=== PATIENT | male | born 1960 | race Caucasian/White ===

== ENCOUNTER 2018-12-12 11:04 | Emergency (ER) | payer OTHER, SELFPAY ==
[2018-12-12 11:04] VITALS: BP 178/112; PULSE 62; RESP 18; TEMP 37.1; O2SAT 98; BMI 25.8
--- NOTE | 2018-12-12 11:41 | ED.VIS.GEN ---
History of Present Illness Chief Complaint: Abn Labs Informant: Patient Onset: Month(s) Context: Gradual Onset Timing: Continuous Quality: Incomplete emptying when patient urinates and elevated creatinine Location: Current Severity: Moderate Maximum Severity: Moderate Worsened by: Suspect enlarged prostate Relieved by: Nothing Associated Symptoms: Sense of fullness in lower abdomen and incomplete voiding Narrative: Patient is a 58-year-old male who presents because of elevated creatinine and concern for urinary retention. Patient states he has had problems voiding for several months He saw his primary care physician in August. Creatinine was elevated. Thought was that the elevated creatinine was secondary to antihypertensive meds. Medication was changed. Renal failure worsened. He was seen today by middle school football coach who is concern for urinary retention. Patient denies dysuria or hematuria. Patient denies testicular pain. Patient denies nausea, vomiting diarrhea. Patient denies constipation. Prior similar symptoms: Yes Recent Illness/Hospitalization: Yes - Past Medical History (1) History of hypertension Status: Acute Past Medical History - Allergies and Home Meds Allergies/Adverse Reactions: Allergies No Known Allergies Allergy (Verified 12/12/18 11:06) Prior records reviewed: Yes Surgical History: no surgical history Smoking Status: Never smoker Alcohol: Rare Drugs: None Review of Systems General: Denies: Chills, Fever, Sweats Eyes: Denies: Visual changes - bilaterally, Blurred Vision - bilaterally, Diplopia ENT: Denies: Rhinorrhea, Sore throat Cardiovascular: Denies: Chest pain, Palpitations Respiratory: Denies: Dyspnea, Cough, Dyspnea on exertion Gastrointestinal: Denies: Abdominal pain, Nausea, Vomiting, Diarrhea, Melena, Hematochezia Genitourinary: Reports: Frequency - Small amounts and incomplete voiding Musculoskeletal: Denies: Back pain, Extremity Pain Skin: Denies: Rash, Wounds Neurological: Denies: Headache, Weakness, Numbness Hematologic: Denies: Easy bruising, Easy bleeding Physical Exam Vital Signs/Narrative: Vital Signs Temp Pulse Resp BP Pulse Ox 12/12/18 11:04 98.7 F 62 18 178/112 H 98 Inital Vital Signs reviewed: Yes General: Well nourished, Well developed, No Acute Distress Head: Normocephalic, Atraumatic Eyes: Perrl, EOMI ENT: Moist mucous membranes, No rhinorrhea Neck: Supple, Nontender Cardiovascular: Regular rate, Regular rhythm, No murmurs Respiratory: No distress, CTA bilaterally, Chest nontender Abdomen: Soft, Nontender, Nondistended, Normal bowel sounds, Mass - Bladder is distended to percussion. Back: Nontender, Normal Inspection Extremities: Nontender, No edema Skin: Normal color, No rash Neurological: Alert, Oriented x3, Cranial nerves II-XII grossly intact, Normal Strength, Normal Sensation Psychological: Normal affect, Normal Mood Diagnostic/Tx/Re-eval Laboratory Results 12/12/18 11:45 Sodium 141 Potassium 4.2 Chloride 110 H Carbon Dioxide 27.0 Anion Gap 4 L BUN 59 H Creatinine 4.37 H Estim Creat Clear Calc 16.81 Est GFR (MDRD) Af Amer 18 L Est GFR (MDRD) Non-Af 15 L BUN/Creatinine Ratio 13.5 Glucose 86 Calcium 9.0 - Medical Decision Making Patient Relations Representative requested repeat basic metabolic panel. Since patient has urinary retention will Place Wang and refer to urologist if placement of Wang confirms urinary retention. Wang was placed and drained greater than 3 L of clear straw-colored urine. Creatinine was 4.37. Case was discussed with middle school football coach. Referral was made to Dr. Barlow. Will prescribe Flomax as well. ED Disposition - Plan for ED Patient: Disposition: Home or Assisted Living Diagnosis: Acute kidney injury (nontraumatic), BPH (benign prostatic hyperplasia), Urinary retention Instructions: ED Retention Urinary Male, ED Catheter Care Wang, Discharge Instructions for Acute Kidney Injury Prescriptions: Tamsulosin HCl [Flomax] 0.4 mg PO DAILY #30 cap Referrals: Wolf Lan MD [Primary Care Provider] - Fede Delgado MD [STAFF PHYSICIAN] - 3-5 Days
[2018-12-12 12:03] LABS: Anion Gap 4 (5-15); BUN 59 mg/dL (7-18); BUN/Creat Ratio 13.5 RATIO (10-20); Chloride 110 mmol/L (98-107); Creatinine, Serum 4.37 mg/dL (0.70-1.30); EST Glomerular Filtration Rate 15 mL/min (>60); Est Glom Filt Rate - Afr Amer 18 mL/min (>60); Estimated Creatinine Clearance 16.81 ml/min; Glucose 86 mg/dL (74-106); Potassium 4.2 mmol/L (3.5-5.1); Sodium Level 141 mmol/L (136-145)
[2018-12-12 14:01] VITALS: BP 164/99; PULSE 56; O2SAT 98
[2018-12-12 14:42] VITALS: BP 144/81; PULSE 54; RESP 14; O2SAT 99
== END 2018-12-12 14:42 | disposition home or self-care (01) ==
PROVIDERS: Emergency Provider Emergency Medicine; Family Provider Family Medicine; PCP Family Medicine
DX: N17.9 Acute kidney failure, unspecified (principal); N40.1 Benign prostatic hyperplasia with lower urinary tract symptoms; R33.8 Other retention of urine; I10 Essential (primary) hypertension; Z79.899 Other long term (current) drug therapy
CPT/HCPCS: 51702; 80048; 99284

== ENCOUNTER 2018-12-12 21:20 | Emergency (ER) | payer OTHER, SELFPAY ==
[2018-12-12 11:04] VITALS: BMI 25.8
[2018-12-12 21:20] VITALS: BP 127/84; PULSE 70; RESP 20; TEMP 36.8; O2SAT 97; BMI 25.8
--- NOTE | 2018-12-12 22:41 | ED.VISSUMM ---
- ER Visit Summary Date of Service: 12/12/18 Chief Complaint: Hematuria History of Present Illness: The patient is a 58 M presents to the emergency department hematuria. The patient was actually seen here earlier today. He was found to have acute urinary retention with an elevated creatinine. He was actually sent in by his blood tester fowl. Wang was placed. He had about 3 L of clear urine out. He states he is feeling much improved. He went home and shortly after being home, he began to have some blood in his bag. He also noticed a small clots. He denies any pain. He is not on anticoagulants. He denies any fevers or chills. He states he was just concerned with the bleeding and wanted to be reevaluated. Physical Examination: Vital signs reviewed General: Well-nourished, well-developed Head: Normocephalic, atraumatic Eyes: Pupils equal and reactive, extraocular muscles intact Neck, supple, no lymphadenopathy Heart: Regular rate and rhythm Respiratory: No distress, clear bilaterally Abdomen: Soft, nontender, nondistended, no peritoneal signs Back: Nontender Extremities: Nontender, no edema, no cords Skin: Normal color no rash Neuro: Alert and oriented, no focal or lateralizing deficits Test Results: [] Emergency Department Course and Treatment: The patient's Wang was irrigated and he did have clearing of urine. However, I was concerned as this was a small Wang that he might have recurrent hematuria. This was replaced with an 18 Kiswahili. Patient continues to have clear urine out. At this time, he is resting comfortably. He is rather asymptomatic. I do feel that he is safe for discharge with follow-up with urology as initially planned. The patient is comfortable with this plan of care. Treatment Plan: [] Disposition: Discharge Impression: 1. Hematuria status post Wang cath placement This note was generated with [employer] dictation software. It may contain incorrect words, spelling, and punctuation that were not noted in review of the chart prior to signing ED Disposition - Plan for ED Patient: Instructions: Discharge Instructions: Caring for Your Indwelling Urinary Catheter Referrals: Fede Delgado MD [STAFF PHYSICIAN] -
[2018-12-12] MEDS: Ondansetron ODT 4 MG Tablet PO (23:30)
[2018-12-12] MEDS: Lidocaine Jelly 2% 20 ML Syringe (URO-JET) 20 APPLIC TOPICAL (23:49)
[2018-12-13 01:07] VITALS: BP 121/79; PULSE 61; RESP 16; O2SAT 97
[2018-12-13 01:08] VITALS: BP 121/79; PULSE 65; RESP 16; O2SAT 96
== END 2018-12-13 01:22 | disposition home or self-care (01) ==
PROVIDERS: Emergency Provider Emergency Medicine; Family Provider Family Medicine; PCP Family Medicine
DX: T83.098A Other mechanical complication of other urinary catheter, initial encounter (principal); R31.9 Hematuria, unspecified
CPT/HCPCS: 99282

== ENCOUNTER → 2019-01-03 13:31 | Outpatient (CLI) | payer OTHER, SELFPAY ==
[2018-12-12 21:20] VITALS: BMI 25.8
[2019-01-03 15:23] LABS: BUN 39 mg/dL (7-18); Creatinine, Serum 2.86 mg/dL (0.70-1.30); Glucose 80 mg/dL (74-106)
[2019-01-03 15:24] LABS: Anion Gap 9 (5-15); BUN/Creat Ratio 13.6 RATIO (10-20); Calcium,Total 8.8 mg/dL (8.5-10.1); Chloride 104 mmol/L (98-107); EST Glomerular Filtration Rate 24 mL/min (>60); Est Glom Filt Rate - Afr Amer 29 mL/min (>60); PSA,Total- Diagnostic 7.83 ng/mL (0.0-4.0); Potassium 3.4 mmol/L (3.5-5.1); Sodium Level 140 mmol/L (136-145)
== END ==
PROVIDERS: Family Provider Family Medicine; PCP Family Medicine; Referring Provider Internal Medicine Nephrology; Visit Provider Internal Medicine Nephrology
DX: N40.0 Benign prostatic hyperplasia without lower urinary tract symptoms (principal); N31.2 Flaccid neuropathic bladder, not elsewhere classified; N17.9 Acute kidney failure, unspecified
CPT/HCPCS: 36415; 80048; 84153

== ENCOUNTER → 2019-02-12 09:12 | Outpatient (CLI) | payer OTHER, SELFPAY ==
--- NOTE | 2019-02-12 09:14 | US_ITS ---
STUDY: RENAL ULTRASOUND - COMPLETE REASON FOR EXAM: Male, 58 years old. Chronic kidney disease. TECHNIQUE: Ultrasound evaluation of the kidneys was performed with real-time and static piña-scale imaging. COMPARISON: None. FINDINGS: RIGHT KIDNEY: Normal location of the right kidney, which is normal in size. The right kidney measures 10.4 cm. There is a normal cortex of the right kidney. The renal cortex measures 1.9 cm. There is a 3 x 2.5 x 2.2 cm simple cyst in the mid kidney. There are no right renal calculi. There is mild hydronephrosis of the right kidney. DISTAL RIGHT URETER: There is non-visualization of the distal right ureter. There is no demonstrated right ureterovesical junction calculus. There is a visualized right ureteral jet. LEFT KIDNEY: Normal location of the left kidney, which is normal in size. The left kidney measures 10.5 cm. There is a normal cortex of the left kidney. The renal cortex measures 1.9 cm. There is no left renal mass or cyst. There are no left renal calculi. There is moderate hydronephrosis of the left kidney. DISTAL LEFT URETER: There is non-visualization of the distal left ureter. There is no demonstrated left ureterovesical junction calculus. There is a visualized left ureteral jet. BLADDER: The distended urinary bladder has a volume of 357 ml. There is trabeculation of the floor of the urinary bladder with normal wall thickness. There is no demonstrated mass within the urinary bladder. Minimal intraluminal debris cannot BE completely ruled out. US/Kidney and Bladder IMPRESSION: 1. Bilateral hydronephrosis, left greater than right. 2. Right renal cyst. 3. Trabeculated bladder wall. The possibility of minimal intraluminal debris cannot be ruled out. Electronically Signed: Kiirll Latham DO at 16:56 EDT Tel [phone], Service support ,
== END ==
PROVIDERS: Family Provider Family Medicine; PCP Family Medicine; Referring Provider Internal Medicine Nephrology; Visit Provider Internal Medicine Nephrology
DX: N18.4 Chronic kidney disease, stage 4 (severe) (principal)
CPT/HCPCS: 76770

== ENCOUNTER → 2019-02-21 14:01 | Outpatient (CLI) | payer OTHER, SELFPAY ==
[2019-02-21 15:06] LABS: Hematocrit 41.6 % (40-54); Hemoglobin 13.7 g/dL (13.0-16.5); Mean Corp Hgb Conc 32.9 g/dL (32-36); Mean Platelet Vol. 9.7 fl (6.2-12.0); Platelet Count 294 K/mm3 (150-450); RBC Distribution Width CV 13.2 % (11.6-14.6); RBC Distribution Width SD 43.8 fl (35.1-43.9); Red Blood Count 4.57 M/mm3 (4.6-6.2); White Blood Count 6.3 K/mm3 (4.4-11.0)
[2019-02-21 15:34] LABS: Anion Gap 7 (5-15); BUN 38 mg/dL (7-18); BUN/Creat Ratio 15.1 RATIO (10-20); Chloride 104 mmol/L (98-107); Creatinine, Serum 2.52 mg/dL (0.70-1.30); EST Glomerular Filtration Rate 28 mL/min (>60); Est Glom Filt Rate - Afr Amer 34 mL/min (>60); Glucose 74 mg/dL (74-106); PSA,Total- Diagnostic 3.37 ng/mL (0.0-4.0); Potassium 4.2 mmol/L (3.5-5.1); Sodium Level 142 mmol/L (136-145)
== END ==
PROVIDERS: Family Provider Family Medicine; PCP Family Medicine; Referring Provider Internal Medicine Nephrology; Visit Provider Internal Medicine Nephrology
DX: N18.4 Chronic kidney disease, stage 4 (severe) (principal); R97.20 Elevated prostate specific antigen [PSA]
CPT/HCPCS: 36415; 80048; 84153; 85027

== ENCOUNTER → 2019-03-16 08:20 | Outpatient (CLI) | payer OTHER, SELFPAY ==
--- NOTE | 2019-03-16 08:23 | CT_ITS ---
STUDY: CT ABDOMEN AND PELVIS WITHOUT CONTRAST REASON FOR EXAM: Male, 58 years old. Neurogenic bladder. RADIATION DOSAGE (If Supplied By Facility): CTDIvol = ( 7.71 ) mGy, DLP = ( 373.81 ) mGycm TECHNIQUE: Transaxial images were obtained from the dome of the diaphragm to the symphysis pubis without oral contrast, and without intravenous contrast. Sagittal and coronal images were reconstructed. Individualized dose optimization techniques were used for this CT. COMPARISON: None. FINDINGS: The visualized lung bases are unremarkable. The visualized portions of the heart are within normal limits. Normal liver. Normal gallbladder and extrahepatic biliary system. Normal spleen. Normal pancreas. Normal bilateral adrenal glands. Mild degree of right hydronephrosis and proximal hydroureter. There is a 2.7 cm x 2.2 cm cyst in the lower pole of the right kidney. There is moderate cortical atrophy of the left kidney, consistent with chronic medical renal disease. Mild degree of left hydronephrosis. Moderate sized hiatal hernia. Normal small intestine. There are multiple colonic diverticula consistent with diverticulosis. There is a calcified appendicolith. This measures 3 mm. Normal abdominal aorta. Normal inferior vena cava. There is borderline retroperitoneal lymphadenopathy with enlarged nodes no greater than 10mm in the short axis diameter. Diffuse circumferential thickening of the bladder wall. Small capacity bladder. There is a small umbilical hernia containing fat. Grade 1 anterolisthesis of L5 on S1 with spondylolysis of the pars interarticularis of the L5 vertebrae. Disc space narrowing at the L5-S1 level. CT/Abdomen/Pelvis without Cont IMPRESSION: Moderate degree of left renal atrophy with mild bilateral hydronephrosis. Diffusely thickened urinary bladder wall with small capacity bladder. Electronically Signed: Virgil Pineda, at 15:21 EDT , Service support ,
== END ==
PROVIDERS: Family Provider Family Medicine; PCP Family Medicine; Referring Provider Urology; Visit Provider Urology
DX: N31.2 Flaccid neuropathic bladder, not elsewhere classified (principal); N18.9 Chronic kidney disease, unspecified; N13.30 Unspecified hydronephrosis; N26.1 Atrophy of kidney (terminal)
CPT/HCPCS: 74176

== ENCOUNTER → 2019-05-11 13:57 | Outpatient (CLI) | payer OTHER, SELFPAY ==
[2019-05-11 14:54] LABS: Hematocrit 43.3 % (40-54); Hemoglobin 14.3 g/dL (13.0-16.5); Mean Corpuscular Hgb 29.4 pg (27.0-32.0); Mean Corpuscular Volume 89.1 fL (80-94); Mean Platelet Vol. 9.6 fl (6.2-12.0); Platelet Count 269 K/mm3 (150-450); RBC Distribution Width CV 13.5 % (11.6-14.6); Red Blood Count 4.86 M/mm3 (4.6-6.2); White Blood Count 6.2 K/mm3 (4.4-11.0)
[2019-05-11 15:05] LABS: Protein, Urine (Random) 16.3 mg/dL (<11.9); Protein:Creat Ratio 150 mg/g CRE (0-200)
[2019-05-11 15:32] LABS: Albumin, Serum 3.8 g/dL (3.2-5.0); BUN 38 mg/dL (7-18); BUN/Creat Ratio 15.3 RATIO (10-20); Chloride 110 mmol/L (98-107); Creatinine, Serum 2.49 mg/dL (0.70-1.30); EST Glomerular Filtration Rate 28 mL/min (>60); Est Glom Filt Rate - Afr Amer 34 mL/min (>60); Glucose 78 mg/dL (74-106); Phosphorus 2.9 mg/dL (2.5-4.9); Potassium 4.1 mmol/L (3.5-5.1); Sodium Level 145 mmol/L (136-145)
[2019-05-11 15:38] LABS: PTHIN 121.1 pg/mL (18.4-80.1)
[2019-05-11 15:39] LABS: Vitamin D,25 Hydroxy 26.8 ng/mL (29.95-100.01)
== END ==
PROVIDERS: Family Provider Family Medicine; PCP Family Medicine; Referring Provider Internal Medicine Nephrology; Visit Provider Internal Medicine Nephrology
DX: N18.4 Chronic kidney disease, stage 4 (severe) (principal)
CPT/HCPCS: 36415; 80069; 82306; 82570; 83970; 84156; 85027

== ENCOUNTER 2022-09-09 16:22 | Inpatient (IN) | payer OTHER, SELFPAY ==
[2022-09-09 16:22] VITALS: BP 174/106; PULSE 89; RESP 16; TEMP 36.3; O2SAT 95; BMI 27.3
[2022-09-09 17:20] LABS: Mucous, Urine 0 SEEN /hpf (<or=2+); Squamous Epithelial Cells - UA 0 SEEN /hpf (0-5)
--- NOTE | 2022-09-09 17:22 | CT_ITS ---
EXAM: CT ABDOMEN AND PELVIS WITHOUT INTRAVENOUS CONTRAST CLINICAL INDICATION: flank pain TECHNIQUE: Helically acquired images were obtained of the abdomen and pelvis without intravenous contrast. This CT exam was performed using one or more of the following dose reduction techniques: automated exposure control, adjustment of the mA and/or kV according to patient size, and/or use of iterative reconstruction technique. This report was created using [employer] report generation technology. COMPARISON: 03/16/2019 FINDINGS: LOWER THORAX: There is a moderate to large hiatal hernia present. Lung bases are clear. No cardiomegaly. No significant pericardial effusion. ABDOMEN: LIVER: Unremarkable. Homogeneous. GALLBLADDER AND BILE DUCTS: Unremarkable. No calcified gallstones. No gallbladder distention or wall edema. No intra- or extrahepatic biliary ductal dilation. PANCREAS: Unremarkable. No focal cystic mass. SPLEEN: Unremarkable. Normal size without focal cystic or solid mass. ADRENALS: Unremarkable. No nodules. KIDNEYS AND URETERS: There is severe left-sided hydronephrosis. There is a 9 mm stone in the proximal left ureter. Normal renal size and position. STOMACH AND BOWEL: There is sigmoid diverticulosis with no evidence of diverticulitis. No stomach or bowel distention. PELVIS: APPENDIX: No evidence of acute appendicitis. BLADDER: There are several bladder stones present. REPRODUCTIVE: Unremarkable as visualized. No mass. ABDOMEN and PELVIS: INTRAPERITONEAL SPACE: Unremarkable. No ascites or other fluid collection. No free air. BONES/JOINTS: Unremarkable. No suspicious lytic or blastic abnormality. SOFT TISSUES: Unremarkable. No discrete abdominal or pelvic wall hernia. VASCULATURE: Unremarkable. Abdominal aorta is non-dilated. LYMPH NODES: Unremarkable. No enlarged lymph nodes. CT/Abdomen/Pelvis without Cont IMPRESSION: Obstruction of the left collecting system due to a 9 mm stone in the proximal left ureter. There is severe left-sided hydronephrosis with perinephric inflammation. Multiple bladder stones are also present. Electronically Signed: James Hernández MD at 18:19 EST ,
[2022-09-09 17:28] LABS: Color, Urine Yellow (Yellow); Glucose, Dipstick Normal (Normal); Ketone-Dipstick 5 mg/dl (Negative); Leukocyte Esterase-Dipstick 500 /ul (Negative); Nitrite-Dipstick Positive (Negative); Occult Blood-Urine 150 /ul (Negative); Protein-Dipstick 30 mg/dl (Negative); Urine Bilirubin Dipstick Negative (Negative); Urine Clarity Cloudy (Clear); Urine Urobilinogen Normal (Normal)
--- NOTE | 2022-09-09 17:29 | EX.ED.GUMALE ---
HPI History of Present Illness Chief Complaint: Complaint Narrative Narrative: 61-year-old male presenting for evaluation of likely UTI. He does describe pelvic pain and lower back pain as well. He states he was originally from [place] but now is visiting from [place]. He gets all his health care in [place]. He states that he does have history of kidney stones his urologist said last time he visited a few years ago to just watch them. He does not remember which side it is on. He also states he has basically 1 functioning kidney and the contract attorney told him to stay away from NSAIDs. He believes he has about 40% kidney function. He does have to self cath because he is a neurogenic bladder. He notes that his urine looks pus like today. He does have nausea and vomiting but denies a fever. [facility] Medical History (Updated 09/09/22 @ 20:[address] Deonte Cooper, DO) Neurogenic bladder Home Medications metoprolol succinate 100 mg tablet,extended release 24 hr 100 mg PO DAILY 12/12/18 [History Last Taken Unknown] rosuvastatin 10 mg tablet 10 mg PO QHS 12/12/18 [History Last Taken Unknown] famotidine 40 mg tablet 40 mg PO DAILY 09/09/22 [History Last Taken Unknown] losartan 25 mg tablet 25 mg PO DAILY 09/09/22 [History Last Taken Unknown] Allergy/AdvReac Type Severity Reaction Status Date / Time No Known Allergies Allergy Verified 09/09/22 16:25 Social History Smoking Status: Never smoker EXAM Physical Exam Const Vital Signs: 09/09/22 16:22 Temperature 97.4 F L Temperature Source Temporal Pulse Rate 89 Respiratory Rate 16 Blood Pressure 174/106 H Blood Pressure Mean 128 Pulse Ox 95 Oxygen Delivery Method Room Air MDM [facility] Narrative Medical decision making narrative: Patient presenting with lower abdominal pain, history of kidney stones, describing pus in his urine. He is a neurogenic bladder and self catheterizes himself. Patient not had a fever but does complain of nausea and vomiting as well as back pain. He reports a history of kidney stones. He reports a history of 1 functional kidney and believes it is left. Differential diagnosis includes but is not limited to kidney stone, ureteral stone, UTI, pyelonephritis, diverticulitis, colitis. CBC to assess for white blood cell count, hemoglobin hematocrit, differential. White blood cell count slightly elevated at 12.3. Platelets normal 285. Hemoglobin macular stable. CMP to assess liver function total bilirubin is 1.3. His other LFTs are normal. Creatinine is 2.09 which is improved from his previous visit here at [facility] in the past although its been a couple of years. Patient given morphine, Zofran and he still continued to have pain. He was given a dose of Dilaudid 0.5 mg. Urinalysis was obtained and does show evidence of infection. CT of the abdomen pelvis was obtained to he does have a very large 9 mm obstructing left ureteral stone which is proximal. He has left-sided perinephric stranding and left-sided hydronephrosis as well. There are stones noted within the bladder. Patient was discussed with Dr. Delgado and he was admitted to his service for further treatment of pyelonephritis, proximal ureteral stone. Patient was given a dose of Rocephin IV in the emergency room. His vital signs of remained stable. Urine culture was sent. All questions were answered. Patient admitted in stable condition. Impression: 1. Acute pyelonephritis 2. Left-sided proximal ureteral stone 3. Nausea/vomiting 4. CKD Lab Data Attestation: I reviewed the patient's lab results. Labs: Laboratory Results - last 24 hr 09/09/22 09/09/22 09/09/22 17:14 17:40 17:40 WBC 12.3 H RBC 5.43 Hgb 16.5 Hct 49.3 MCV 90.8 MCH 30.4 MCHC 33.5 RDW Std Deviation 46.9 H RDW Coeff of April 14.2 Plt Count 285 MPV 9.3 Sodium 139 Potassium 4.6 Chloride 108 H Carbon Dioxide 22.0 Anion Gap 9 BUN 32 H Creatinine 2.09 H Estim Creat Clear Calc 35.00 Est GFR (MDRD) Af Amer 41 L Est GFR (MDRD) Non-Af 34 L BUN/Creatinine Ratio 15.3 Glucose 146 H Calcium 9.8 Total Bilirubin 1.30 H AST 15 ALT 21 Alkaline Phosphatase 74 Total Protein 7.3 Albumin 3.6 Globulin 3.7 Albumin/Globulin Ratio 1.0 Urine Color Yellow Urine Clarity Cloudy Urine pH 6.0 Ur Specific [place] 1.020 Urine Protein 30 H Urine Glucose (UA) Normal Urine Ketones 5 H Urine Occult Blood 150 H Urine Nitrite Positive H Urine Bilirubin Negative Urine Urobilinogen Normal Ur Leukocyte Esterase 500 H Urine RBC 0-5 SEEN Urine WBC >100 SEEN Ur Squamous Epith Cells 0 SEEN Urine Bacteria 1+ Urine Mucus 0 SEEN Radiography Diagnostic Testing: Clinical Impression(s) from Imaging Studies Abdomen/Pelvis CT 09/09/22 17:22 IMPRESSION: Obstruction of the left collecting system due to a 9 mm stone in the proximal left ureter. There is severe left-sided hydronephrosis with perinephric inflammation. Multiple bladder stones are also present. Electronically Signed: James Hernández MD at 18:19 EST , Discharge Plan Triage Chief Complaint: Complaint ED Provider: Deonte Cooper Dx/Rx/DC Orders Prescriptions: No Action metoprolol succinate 100 MG tablet extended release 24 hr 100 mg PO DAILY rosuvastatin 10 MG tablet 10 mg PO QHS famotidine 40 mg tablet 40 mg PO DAILY Label Comments: TAKE 1 tablet every DAY by oral route as needed. losartan 25 mg tablet 25 mg PO DAILY Label Comments: Take 1 tablet every day by oral route. Primary Care Provider: Care Physician,No Primary Referrals: Care Physician,No Primary [Primary Care Provider] -
[2022-09-09 17:46] LABS: Hematocrit 49.3 % (40-54); Hemoglobin 16.5 g/dL (13.0-16.5); Mean Corp Hgb Conc 33.5 g/dL (32-36); Mean Corpuscular Hgb 30.4 pg (27.0-32.0); Mean Corpuscular Volume 90.8 fL (80-94); Mean Platelet Vol. 9.3 fl (6.2-12.0); Platelet Count 285 K/mm3 (150-450); RBC Distribution Width CV 14.2 % (11.6-14.6); RBC Distribution Width SD 46.9 fl (35.1-43.9); Red Blood Count 5.43 M/mm3 (4.6-6.2); White Blood Count 12.3 K/mm3 (4.4-11.0)
[2022-09-09] MEDS: Ondansetron 4 MG/2 ML Vial IV (17:51)
[2022-09-09] MEDS: Morphine 4 MG/ML Syringe IV (17:51)
[2022-09-09 18:04] LABS: Red Blood Cells-Urine 0-5 SEEN /hpf (0-5); White Blood Cells >100 SEEN /hpf (0-5)
[2022-09-09 18:05] LABS: Bacteria 1+ /hpf (None Seen)
[2022-09-09 18:16] LABS: AST(SGOT) 15 U/L (15-37); Alanine Aminotransfer ALT/SGPT 21 U/L (16-61); Albumin, Serum 3.6 g/dL (3.2-5.0); Alkaline Phosphatase 74 U/L (45-117); Anion Gap 9 (5-15); BUN 32 mg/dL (7-18); BUN/Creat Ratio 15.3 RATIO (10-20); Calcium,Total 9.8 mg/dL (8.5-10.1); Chloride 108 mmol/L (98-107); Creatinine, Serum 2.09 mg/dL (0.70-1.30); EST Glomerular Filtration Rate 34 mL/min (>60); Est Glom Filt Rate - Afr Amer 41 mL/min (>60); Globulin 3.7 g/dL (2.2-4.2); Glucose 146 mg/dL (74-106); Potassium 4.6 mmol/L (3.5-5.1); Protein, Total 7.3 g/dL (6.4-8.2); Sodium Level 139 mmol/L (136-145)
[2022-09-09] MEDS: Ceftriaxone 1 GM/50 ML BAG IV (18:59)
[2022-09-09] MEDS: HYDROmorphone 0.5 MG/0.5 ML SYRINGE IV (19:33)
[2022-09-09 21:26] VITALS: BMI 26.8
[2022-09-09 21:30] VITALS: BP 140/93; PULSE 116; RESP 20; TEMP 37.1; O2SAT 98
[2022-09-09 21:35] VITALS: BP 140/93; PULSE 116; RESP 20; TEMP 37.1; O2SAT 98
[2022-09-10] VITALS (14 sets, daily range): BP systolic 94–120; BP diastolic 63–79; PULSE 68–105; RESP 14–18; TEMP 36.8–38.8; O2SAT 91–97; BMI 26.8
--- NOTE | 2022-09-10 05:32 | EKG12_ITS ---
Test Reason : PRE-OP Blood Pressure : / mmHG Vent. Rate : 090 BPM Atrial Rate : 090 BPM P-R Int : 130 ms QRS Dur : 086 ms QT Int : 312 ms P-R-T Axes : 056 051 082 degrees QTc Int : 381 ms Normal sinus rhythm Nonspecific T wave abnormality Abnormal ECG No previous ECGs available Confirmed by PROSPER HENRY, KOKO ([id number]), movie editor CONNIE TRAVIS ([id number]) on 09/13/2022 12:41:28 PM Referred By: FRIEND Confirmed By:AUGUSTO CHENG MD
[2022-09-10] MEDS: 0.9% Saline Lock 10 ML Syringe IV (05:39)
[2022-09-10] MEDS: levoFLOXacin IV 750 MG/150 ML BAG 100 MG IV (08:54)
[2022-09-10] MEDS: Losartan Potassium 25 MG Tablet PO (08:54)
[2022-09-10] MEDS: Metoprolol(XL)Succ 100 MG Tablet PO (08:54)
[2022-09-10] MEDS: Famotidine 20 MG Tablet PO (08:54)
[2022-09-10] MEDS: Morphine 2 MG/ML Syringe IV (13:27)
[2022-09-10] MEDS: Lactated Ringers 1,000 ML 15 ML IV ×2 (15:59→19:40)
--- NOTE | 2022-09-10 18:05 | PCM.HP.STD ---
HPI - General General Date of Admission: 09/09/22 Date of Service: 09/10/22 Chief Complaint: Bladder stones infected urine and obstructed left kidney from stone HPI Narrative JOSIAH DOMINGUEZ, is a 61 M who presents to the emergency room with severe left flank pain from a large stone causing obstruction of his left kidney and pyelonephritis he has a white count of 12,000 fevers and chills urine culture is growing positive what appears to be E. coli he is can be admitted for antibiotics and will plan to go cystoscopy stent placement. Call was made to the operating room for the first available time slot for tomorrow for stent placement. Patient will be admitted. [facility] Medical History Hypertension Kidney disease Neurogenic bladder Home Medications metoprolol succinate 100 mg tablet,extended release 24 hr 100 mg PO DAILY 12/12/18 [History Last Taken Unknown] rosuvastatin 10 mg tablet 10 mg PO QHS 12/12/18 [History Last Taken Unknown] famotidine 40 mg tablet 40 mg PO DAILY 09/09/22 [History Last Taken Unknown] losartan 25 mg tablet 25 mg PO DAILY 09/09/22 [History Last Taken Unknown] Allergy/AdvReac Type Severity Reaction Status Date / Time No Known Allergies Allergy Verified 09/09/22 16:25 Social History Smoking Status: Never smoker Vital Signs Vital Signs Vital Signs: 09/09/22 21:35 09/09/22 21:35 09/09/22 21:54 Temperature 98.7 F Temperature Source Oral Pulse Rate 116 H Pulse Strength Weak (1+) Respiratory Rate 20 H Respiratory Effort Normal Non-Labored Respiratory Depth Normal Respiratory Pattern Normal Blood Pressure 140/93 H Blood Pressure Mean 108 Blood Pressure Source Monitor Blood Pressure Position Supine Blood Pressure Location Right Arm Pulse Ox 98 Oxygen Delivery Method Room Air Room Air 09/09/22 21:30 09/10/22 03:35 09/10/22 04:53 Temperature 98.7 F 98.6 F Temperature Source Oral Oral Pulse Rate 116 H 105 H Pulse Strength Respiratory Rate 20 H 18 Respiratory Effort Normal Non-Labored Respiratory Depth Normal Respiratory Pattern Normal Blood Pressure 140/93 H 98/64 Blood Pressure Mean 108 75 Blood Pressure Source Monitor Blood Pressure Position Semi-Fowlers Blood Pressure Location Right Arm Pulse Ox 98 94 Oxygen Delivery Method Room Air Room Air Room Air 09/10/22 06:40 09/10/22 08:54 09/10/22 12:40 Temperature 98.4 F 98.2 F Temperature Source Oral Oral Pulse Rate 97 92 92 Pulse Strength Respiratory Rate 18 18 Respiratory Effort Respiratory Depth Respiratory Pattern Blood Pressure 103/79 120/75 Blood Pressure Mean 87 90 Blood Pressure Source Monitor Monitor Blood Pressure Position Semi-Fowlers Semi-Fowlers Blood Pressure Location Right Arm Right Arm Pulse Ox 96 96 Oxygen Delivery Method Room Air Room Air Weight Weight: 80 kg Body Mass Index (BMI) 26.8 Physical Exam Const alert and oriented x3 General Appearance: cooperative HEENT normocephalic, head/scalp atraumatic, EAC's normal and TM's normal bilaterally Eyes PERRL and EOMs intact bilaterally Pupil: sluggish Neck no lymphadenopathy, supple and no JVD General: trachea midline Lymph Lymphatic: no lymphadenopathy noted, lymphedema and lymphadenopathy Resp normal respiratory effort, normal air movement and clear to auscultation bilaterally Cardio regular rate, regular rhythm and peripheral pulses 2+ throughout GI soft to palpation, non-tender and non-distended Extremity normal capillary refill and no clubbing, cyanosis or edema General Extremity: no tenderness to palpation of joints or extremities Skin no rashes or lesions noted General Skin Exam: turgor normal Lesions: no lesions Rashes: no rashes Neuro CN's II-XII intact bilaterally Speech: speech normal Motor Exam: strength 5/5 throughout; Negative for general weakness Psych thought process normal, cooperative and affect normal Appearance: appropriate Results Medical Records Data Attestation: I reviewed the patient's medical records Lab / Micro Data Attestation: I reviewed the patient's lab results. Result Diagrams: 09/09/22 17:40 09/09/22 17:40 Labs: Laboratory Results - last 24 hr 09/09/22 17:14: Urine RBC 0-5 SEEN, Urine WBC >100 SEEN, Ur Squamous Epith Cells 0 SEEN, Urine Bacteria 1+, Urine Mucus 0 SEEN 09/09/22 17:40: Sodium 139, Potassium 4.6, Chloride 108 H, Carbon Dioxide 22.0, Anion Gap 9, BUN 32 H, Creatinine 2.09 H, Estim Creat Clear Calc 35.00, Est GFR (MDRD) Af Amer 41 L, Est GFR (MDRD) Non-Af 34 L, BUN/Creatinine Ratio 15.3, Glucose 146 H, Calcium 9.8, Total Bilirubin 1.30 H, AST 15, ALT 21, Alkaline Phosphatase 74, Total Protein 7.3, Albumin 3.6, Globulin 3.7, Albumin/Globulin Ratio 1.0 Micro: Microbiology 09/09/22 17:14 Urine Catheter - Catheter Urine Culture - Preliminary GNR lactose assembling motor builder Radiology Impression Abdomen/Pelvis CT 09/09/22 17:22 IMPRESSION: Obstruction of the left collecting system due to a 9 mm stone in the proximal left ureter. There is severe left-sided hydronephrosis with perinephric inflammation. Multiple bladder stones are also present. Electronically Signed: James Hernández MD at 18:19 EST , Assessment & Plan Assessment/Plan (1) Kidney stone: PLAN: Cystoscopy and stent placement today (2) Pyelonephritis of left kidney: PLAN: continue with Cipro for pyelonephritis we will consult hospitalist to assist with care
[2022-09-10] MEDS: Cefazolin 2 GM in 0.9% Normal Saline 100 ML IV (18:10)
--- NOTE | 2022-09-10 18:24 | PCM.OPRPT ---
Report of Operation Date of Procedure: 09/10/22 Pre-Operative Diagnosis: Obstructing left ureteral calculi left pyelonephritis Post-Operative Diagnosis: The same Surgery/Procedure Performed:: Cystoscopy and left stent placement and placement of Wang catheter Description of Surgical Findings:: Is a 61-year-old male with a neurogenic bladder who self caths presented to the emergency room with obstruction of the left kidney with a large stone and severe left renal colic. He was admitted for pain control and also for his infection he was growing E. coli cultures from the urine. Today organ to do a cystoscopy and stent placement to unobstruct the left kidney we do not plan to treat any of the stones at this point since the patient is an infected this was explained to the patient and to his family as to why were negative treat the stones currently because of the ongoing infection that needs to be cleared first. Patient was taken back to the operating room at a smooth induction of MAC local anesthesia he was placed in dorsolithotomy position. The penis and testicles were prepped and draped in usual sterile fashion went into the bladder with a 21 [place] rigid cystourethroscope once inside the bladder had a fair amount of debris in the bladder that had to be evacuated out and then once the debris was evacuated identified multiple stones in the base of the bladder the stones were not addressed since again he is infected. I then identified the anatomy he had a very trabeculated bladder identify the right ureteral orifice and then after some inspection it took time to identify the left ureteral orifice but eventually was identified then cannulated with a wire advanced a wire up into the kidney coiled the wire in the kidney advance a stent over the wire which was then good position pulled the wire and the stent coiled in the kidney bladder good position I then used a grasper to reposition the stent in the bladder to effectively make sure the coil was complete once this was done then is get a good position of the stent in the bladder I checked a KUB in the fluoroscopy and the stent was in good position of the kidney patient bladder was drained we placed a Wang catheter in the bladder patient's anesthetic was reversed taken back to PACU in good condition we will continue with IV antibiotics once he is stable he will be able to be discharged home and what to set him up for outpatient treatment for all the stones. Surgeon: Fede Delgado Type of Anesthesia: MAC and Topical Anesth Drains: stent Admit VTE Documentation VTE Present on Admission: No VTE Mechan Device Prophylaxis: SCD's VTE Pharm Prophylaxis ordered?: No
--- NOTE | 2022-09-10 19:46 | PN.HOSP_ITS ---
Subjective Subjective Consult for medical management/pyelonephritis: 61-year-old male with past medical history of neurogenic bladder, history of kidney stones, who presented with severe left flank pain, fever and chills and was found to have significant left hydroureter from a large stone. CT of the abdomen pelvis in the ED showed obstruction of the left collecting system due to a 9 mm stone in the proximal left ureter with severe left-sided hydronephrosis with perinephric inflammation. Multiple bladder stones were present. Patient underwent cystoscopy with stent placement today. Postprocedure, patient was running low-grade fever, slightly tachycardic. He denied any shortness of breath or chest pain or nausea. Objective Data Objective Data Vital Signs: Vital Signs Temp Pulse Resp BP Pulse Ox O2 Del Method 100.4 F H 105 H 16 115/76 94 Room Air 09/10/22 19:24 09/10/22 19:24 09/10/22 19:24 09/10/22 19:24 09/10/22 19:24 09/10/22 19:24 Oxygen Delivery Method Room Air Weight: 80 kg Body Mass Index (BMI) 26.8 Intake & Output: Intake and Output for Last 24 Hours 09/08/22 09/09/22 09/10/22 23:59 23:59 23:59 Intake Total 50 / 150 465.25 / 465.25 Output Total 950 / 950 Balance 50 / 150 -484.75 / -484.75 Lab / Micro Data Result Diagrams: 09/09/22 17:40 09/09/22 17:40 Micro: Microbiology 09/09/22 17:14 Urine Catheter - Catheter Urine Culture - Preliminary GNR lactose psychological examiner Physical Exam Narrative Physical exam: General: Alert, Oriented x3, Cooperative HEENT: Atraumatic Oral: Moist Mucosa Neck: Supple Lungs: Diminished to auscultation Cardiovascular: HS I+II, regular, no murmurs Abdomen: Bowel Sounds Present, Soft, Non Tender Extremities: No edema Skin: No rashes, No breakdown Neurological: Grossly intact Psych/Mental Status: Appropriate Assessment & Plan Assessment/Plan (1) Pyelonephritis of left kidney: (2) Kidney stone: PLAN: Plan 1. Acute GNR, probably E. Coli pyelonephritis/UTI secondary to large 9 mm obstructing kidney stone with severe left-sided hydronephrosis Seen on CT of the abdomen/pelvis Status post cystoscopy and left ureteral stent placement 09/10/22. Continue on IV fluids, IV levaquin, urology recommendations Repeat labs in am 2. Left kidney and bladder stones, in a patient with neurogenic bladder; intermittently self catheterizes S/p cystoscopy and ureteral stent, urology followed up in the outpatient planned 3. CKD stage 3b/IV, Cr appears to be close to baseline 2-2.4 Will trend labs 4. Hypertension, controlled, hold Losartan for now Continue on metoprolol 5. DVT PPx- SCDs Charges/Coding Visit Charges Inpatient E&M: 84315 Subs Hosp L2
[2022-09-10] MEDS: 0.9% Normal Saline 1,000 ML 125 ML IV (21:56)
[2022-09-10] MEDS: Atorvastatin Calcium 20 MG Tablet PO (22:01)
[2022-09-11 05:25] VITALS: BP 120/80; PULSE 82; RESP 14; TEMP 36.6; O2SAT 99
[2022-09-11] MEDS: 0.9% Normal Saline 1,000 ML 125 ML IV ×3 (06:13→20:07)
[2022-09-11 06:57] LABS: Absolute Lymphocyte Count 1.12 X10^3/uL (0.83-4.51); Absolute Neutrophil Count 8.7 X10^3/uL (2.0-7.7); Basophil# 0.03 X10^3/uL; Basophil% 0.3 % (0-1); Eosinophil# 0.02 X10^3/uL; Eosinophils% 0.2 % (0-5); Hematocrit 44.1 % (40-54); Hemoglobin 14.2 g/dL (13.0-16.5); Lymphocyte # 1.12 X10^3/ul (0.83-4.51); Lymphocyte % 10.4 % (19-41); Mean Corp Hgb Conc 32.2 g/dL (32-36); Mean Corpuscular Hgb 30.3 pg (27.0-32.0); Mean Corpuscular Volume 94.2 fL (80-94); Mean Platelet Vol. 9.1 fl (6.2-12.0); Monocyte# 0.86 X10^3/uL; Monocyte% 7.9 % (0-10); NRBC Flagged by Analyzer 0 % (0-5); Neutrophil # 8.71 X10^3/uL (2.7-7.7); Neutrophil % 80.5 % (47-70); Platelet Count 195 K/mm3 (150-450); RBC Distribution Width CV 14.8 % (11.6-14.6); RBC Distribution Width SD 51.9 fl (35.1-43.9); Red Blood Count 4.68 M/mm3 (4.6-6.2); White Blood Count 10.8 K/mm3 (4.4-11.0)
[2022-09-11 07:22] LABS: ALB/GLOB Ratio 0.7 RATIO (0.9-2.4); AST(SGOT) 14 U/L (15-37); Alanine Aminotransfer ALT/SGPT 15 U/L (16-61); Albumin, Serum 2.4 g/dL (3.2-5.0); Alkaline Phosphatase 52 U/L (45-117); Anion Gap 5 (5-15); BUN 37 mg/dL (7-18); BUN/Creat Ratio 16.4 RATIO (10-20); Chloride 109 mmol/L (98-107); Creatinine, Serum 2.25 mg/dL (0.70-1.30); EST Glomerular Filtration Rate 31 mL/min (>60); Est Glom Filt Rate - Afr Amer 38 mL/min (>60); Estimated Creatinine Clearance 32.51 ml/min; Globulin 3.5 g/dL (2.2-4.2); Glucose 126 mg/dL (74-106); Potassium 5.3 mmol/L (3.5-5.1); Protein, Total 5.9 g/dL (6.4-8.2); Sodium Level 141 mmol/L (136-145)
--- NOTE | 2022-09-11 08:42 | PN.URO_ITS ---
Subjective Subjective Status post stent placement yesterday for urinary tract infection and pyelonephritis continue with antibiotics continue with Wang drainage may be discharged tomorrow or Tuesday Objective Data Objective Data Vital Signs: Vital Signs Temp Pulse Resp BP Pulse Ox O2 Del Method 97.9 F 82 14 120/80 99 Room Air 09/11/22 05:25 09/11/22 05:25 09/11/22 05:25 09/11/22 05:25 09/11/22 05:25 09/11/22 05:25 Oxygen Delivery Method Room Air Weight: 80 kg Body Mass Index (BMI) 26.8 Intake & Output: Intake and Output for Last 24 Hours 09/09/22 09/10/22 09/11/22 23:59 23:59 23:59 Intake Total 50 / 150 465.25 / 465.25 1110 / 1110 Output Total 950 / 950 600 / 600 Balance 50 / 150 -484.75 / -484.75 510 / 510 Lab / Micro Data Result Diagrams: 09/11/22 06:54 09/11/22 06:54 Labs: Laboratory Results - last 24 hr 09/11/22 06:54: WBC 10.8, RBC 4.68, Hgb 14.2, Hct 44.1, MCV 94.2 H, MCH 30.3, MCHC 32.2, RDW Std Deviation 51.9 H, RDW Coeff of April 14.8 H, Plt Count 195, MPV 9.1, Immature Gran % (Auto) 0.700, Neut % (Auto) 80.5 H, Lymph % (Auto) 10.4 L, Mccreary % (Auto) 7.9, Eos % (Auto) 0.2, Baso % (Auto) 0.3, Absolute Neuts (auto) 8.7 H, Absolute Lymphs (auto) 1.12, Nucleated RBC % 0 09/11/22 06:54: Sodium 141, Potassium 5.3 H, Chloride 109 H, Carbon Dioxide 27.0, Anion Gap 5, BUN 37 H, Creatinine 2.25 H, Estim Creat Clear Calc 32.51, Est GFR (MDRD) Af Amer 38 L, Est GFR (MDRD) Non-Af 31 L, BUN/Creatinine Ratio 16.4, Glucose 126 H, Calcium 9.0, Total Bilirubin 1.00, AST 14 L, ALT 15 L, Alkaline Phosphatase 52, Total Protein 5.9 L, Albumin 2.4 L, Globulin 3.5, Albumin/Globulin Ratio 0.7 L Micro: Microbiology 09/09/22 17:14 Urine Catheter - Catheter Urine Culture - Final Enterobacter cloacae complex
[2022-09-11 09:56] VITALS: BP 133/96; PULSE 76; RESP 16; TEMP 36.9; O2SAT 98
[2022-09-11 10:00] VITALS: BP 133/96; PULSE 76
[2022-09-11] MEDS: Metoprolol(XL)Succ 100 MG Tablet PO (10:00)
[2022-09-11] MEDS: Famotidine 20 MG Tablet PO (10:00)
[2022-09-11] MEDS: Losartan Potassium 25 MG Tablet PO (10:00)
--- NOTE | 2022-09-11 10:17 | PN.HOSP_ITS ---
Subjective Subjective Doing well, feels much better than when he came in. Objective Data Objective Data Vital Signs: Vital Signs Temp Pulse Resp BP Pulse Ox O2 Del Method 98.4 F 76 16 133/96 H 98 Room Air 09/11/22 09:56 09/11/22 10:00 09/11/22 09:56 09/11/22 10:00 09/11/22 09:56 09/11/22 09:56 Oxygen Delivery Method Room Air Weight: 176 lb 5.917 oz Body Mass Index (BMI) 26.8 Intake & Output: Intake and Output for Last 24 Hours 09/10/22 09/11/22 09/12/22 03:59 03:59 03:59 Intake Total 150 / 150 365.25 / 365.25 1110 / 1110 Output Total 950 / 950 600 / 600 Balance 150 / 150 -584.75 / -584.75 510 / 510 Lab / Micro Data Result Diagrams: 09/11/22 06:54 09/11/22 06:54 Labs: Laboratory Results - last 24 hr 09/11/22 06:54: WBC 10.8, RBC 4.68, Hgb 14.2, Hct 44.1, MCV 94.2 H, MCH 30.3, MCHC 32.2, RDW Std Deviation 51.9 H, RDW Coeff of April 14.8 H, Plt Count 195, MPV 9.1, Immature Gran % (Auto) 0.700, Neut % (Auto) 80.5 H, Lymph % (Auto) 10.4 L, Wil[place] % (Auto) 7.9, Eos % (Auto) 0.2, Baso % (Auto) 0.3, Absolute Neuts (auto) 8.7 H, Absolute Lymphs (auto) 1.12, Nucleated RBC % 0 09/11/22 06:54: Sodium 141, Potassium 5.3 H, Chloride 109 H, Carbon Dioxide 27.0, Anion Gap 5, BUN 37 H, Creatinine 2.25 H, Estim Creat Clear Calc 32.51, Est GFR (MDRD) Af Amer 38 L, Est GFR (MDRD) Non-Af 31 L, BUN/Creatinine Ratio 16.4, Glucose 126 H, Calcium 9.0, Total Bilirubin 1.00, AST 14 L, ALT 15 L, Alkaline Phosphatase 52, Total Protein 5.9 L, Albumin 2.4 L, Globulin 3.5, Albumin/Globulin Ratio 0.7 L Micro: Microbiology 09/09/22 17:14 Urine Catheter - Catheter Urine Culture - Final Enterobacter cloacae complex Physical Exam Narrative General: Alert, Oriented x3, Cooperative, No apparent distress HEENT: Atraumatic, PERRLA, EOMI, Normocephalic Oral: Moist Mucosa Neck: Supple, No JVD Lungs: Diminished, Normal air movement, No rhonchi, No wheeze, No rales Cardiovascular: Regular rate, Regular Rhythm, Normal S1, Normal S2, No murmurs Abdomen: Soft, Non Tender, Non-Distended, No Hepato-splenomegaly Extremities: No edema, Capillary Refill Less than 3 Seconds Skin: No rashes, No breakdown Musculoskeletal: No Tenderness to Palpation of Joints or Extremities Neurological: Cranial nerves II-XII grossly intact, Motor Exam 5/5 strength throughout, Sensory exam intact to light touch and pain Psych/Mental Status: Normal Affect, Appropriate Assessment & Plan Assessment/Plan (1) Pyelonephritis of left kidney: (2) Kidney stone: PLAN: Plan 1. Acute GNR, Enterobacter UTI with pyelonephritis secondary to large 9 mm obstructing kidney stone with left hydronephrosis ? Status post cystoscopy and left ureteral stent placement 09/10/22. ?Continue on IV fluids, IV levaquin, urology recommendations ? Enterobacter is sensitive to Levaquin 2. Left kidney and bladder stones, in a patient with neurogenic bladder; intermittently self catheterizes ?Continue with Wang per primary 3. CKD stage 3b/IV ? Cr appears to be close to baseline 2-2.4 4. HTN ? Blood pressures are stable ? Continue with her home blood pressure medications DVT: SCDs Charges/Coding Visit Charges Inpatient E&M: 55304 Subs Hosp L2
--- NOTE | 2022-09-11 13:20 | CASEMGMT ---
ELOISA RODRIGUEZ DC Planning Assessment: Face to Face with patient for initial transition planning/care coordination assessment. Pt alert, oriented x4, visiting with his brother and ZACK at bedside. ELOISA RODRIGUEZ introduced self and role at [facility], pt voices understanding and is agreeable to participating in assessment with family present.? Care providers, pharmacy,?and demographics verified. Admitting dx: pyelonephritis, ureteral stone PCP: Geena Aragon (in [place]) Specialists: none Preferred Pharmacy: [facility] Insurance: [employer] ([place] [employer]) Prescription Benefit:?yes Living Will/HPOA: None LNOK: brother Saud Living Arrangements: Pt is from [place] but currently staying with his brother at their farm. Pt states he is independent with all ADLs including self care and household tasks. Transportation: Pt drives and drove himself here from [place]. DME/HHC/SNF: pt denies ? Plan: Pt plans to return to his brother's home to recover before returning home. Pt denies any dc needs or concerns at this time. Will continue to monitor and assist with dc needs as identified. Scott Perez RN CM
[2022-09-11 15:09] VITALS: BP 134/74; PULSE 75; RESP 16; TEMP 37.3; O2SAT 95
[2022-09-11 20:03] VITALS: BP 138/92; PULSE 74; RESP 18; TEMP 37.2; O2SAT 96
[2022-09-11 22:23] VITALS: BP 118/78; PULSE 67; RESP 18; TEMP 36.9; O2SAT 97
[2022-09-11] MEDS: Atorvastatin Calcium 20 MG Tablet PO (22:23)
[2022-09-11] MEDS: Pantoprazole Sodium 40 MG Tablet PO (22:23)
[2022-09-12] MEDS: 0.9% Normal Saline 1,000 ML 125 ML IV (04:15)
[2022-09-12 04:25] VITALS: BP 124/89; PULSE 64; RESP 18; TEMP 36.6; O2SAT 97
[2022-09-12 07:19] LABS: Anion Gap 7 (5-15); BUN 28 mg/dL (7-18); BUN/Creat Ratio 16.8 RATIO (10-20); Calcium,Total 8.5 mg/dL (8.5-10.1); Chloride 114 mmol/L (98-107); Creatinine, Serum 1.67 mg/dL (0.70-1.30); EST Glomerular Filtration Rate 44 mL/min (>60); Est Glom Filt Rate - Afr Amer 54 mL/min (>60); Glucose 90 mg/dL (74-106); Potassium 4.1 mmol/L (3.5-5.1); Sodium Level 142 mmol/L (136-145)
[2022-09-12 09:10] VITALS: BP 129/86; PULSE 62; RESP 18; TEMP 36.8; O2SAT 96
[2022-09-12] MEDS: levoFLOXacin IV 750 MG/150 ML BAG 100 MG IV (09:11)
[2022-09-12 09:15] VITALS: BP 129/86; PULSE 62
[2022-09-12] MEDS: Losartan Potassium 25 MG Tablet PO (09:15)
[2022-09-12] MEDS: Metoprolol(XL)Succ 100 MG Tablet PO (09:15)
[2022-09-12] MEDS: Pantoprazole Sodium 40 MG Tablet PO (09:15)
--- NOTE | 2022-09-12 09:53 | DCINST_ITS ---
Discharge Instructions Diet Discharge Diet: No restrictions, Light diet - advance as tolerated and Soft diet Activity Discharge Activity: Return to Normal Activity Additional Activity Instructions:: resume self cath as usual Dressing / Incision Call your doctor if you observe: Fever of 101 or Higher Follow Up Care Please Follow Up With: Fede Delgado MD When: call my office to get set up for Surgery, or find urologist at home to take care of your stones. Test Results: Test results from this visit will be discussed in further detail at your follow- up appointment, if applicable. Discharge Plan Admission Admit Date/Time: 09/09/22 22:28 Primary Reason for Your Visit: kidney stone Attending Provider: Fede Delgado Primary Care Provider: Care Physician,No Primary Consulting Providers: Carlie Judd ; Isabella Davison ; Isabella Wallis ; Yan Murcia Discharge Orders/Prescriptions Prescriptions: New ciprofloxacin HCl [Cipro] 500 mg tablet 500 mg PO BID Qty: 14 0RF ibuprofen 800 mg tablet 800 mg PO Q8H PRN (Reason: pain) Qty: 20 0RF No Action metoprolol succinate 100 MG tablet extended release 24 hr 100 mg PO DAILY rosuvastatin 10 MG tablet 10 mg PO QHS famotidine 40 mg tablet 40 mg PO DAILY Label Comments: TAKE 1 tablet every DAY by oral route as needed. losartan 25 mg tablet 25 mg PO DAILY Label Comments: Take 1 tablet every day by oral route. Referrals / Follow Up: Fede Delgado MD [Med Staff - Active Staff] - Care Physician,No Primary [Primary Care Provider] - Disposition Discharge Orders: Discharge Patient (Routine); Ordered 09/12/22 Ordered By: Dr. Fede Delgado
--- NOTE | 2022-09-12 09:53 | PCM.PN.HOSP ---
Subjective Subjective Doing well, no issues overnight Objective Data Objective Data Vital Signs: Vital Signs Temp Pulse Resp BP Pulse Ox O2 Del Method 98.2 F 62 18 129/86 H 96 Room Air 09/12/22 09:10 09/12/22 09:15 09/12/22 09:10 09/12/22 09:15 09/12/22 09:10 09/12/22 09:10 Oxygen Delivery Method Room Air Weight: 176 lb 5.917 oz Body Mass Index (BMI) 26.8 Intake & Output: Intake and Output for Last 24 Hours 09/11/22 09/12/22 09/13/22 03:59 03:59 03:59 Intake Total 365.25 / 365.25 5087.50 / 5087.50 1431.25 / 1431.25 Output Total 950 / 950 2800 / 2800 700 / 700 Balance -584.75 / -584.75 2287.50 / 2287.50 731.25 / 731.25 Lab / Micro Data Result Diagrams: 09/11/22 06:54 09/12/22 06:17 Labs: Laboratory Results - last 24 hr 09/12/22 06:17: Sodium 142, Potassium 4.1, Chloride 114 H, Carbon Dioxide 21.0, Anion Gap 7, BUN 28 H, Creatinine 1.67 H, Estim Creat Clear Calc 43.80, Est GFR (MDRD) Af Amer 54 L, Est GFR (MDRD) Non-Af 44 L, BUN/Creatinine Ratio 16.8, Glucose 90, Calcium 8.5 Micro: Microbiology 09/09/22 17:14 Urine Catheter - Catheter Urine Culture - Final Enterobacter cloacae complex Physical Exam Narrative General: Alert, Oriented x3, Cooperative, No apparent distress HEENT: Atraumatic, PERRLA, EOMI, Normocephalic Oral: Moist Mucosa Neck: Supple, No JVD Lungs: Diminished, Normal air movement, No rhonchi, No wheeze, No rales Cardiovascular: Regular rate, Regular Rhythm, Normal S1, Normal S2, No murmurs Abdomen: Soft, Non Tender, Non-Distended, No Hepato-splenomegaly Extremities: No edema, Capillary Refill Less than 3 Seconds Skin: No rashes, No breakdown Musculoskeletal: No Tenderness to Palpation of Joints or Extremities Neurological: Cranial nerves II-XII grossly intact, Motor Exam 5/5 strength throughout, Sensory exam intact to light touch and pain Psych/Mental Status: Normal Affect, Appropriate Assessment & Plan Assessment/Plan (1) Pyelonephritis of left kidney: (2) Kidney stone: PLAN: Plan 1. Acute GNR, Enterobacter UTI with pyelonephritis secondary to large 9 mm obstructing kidney stone with left hydronephrosis ? Status post cystoscopy and left ureteral stent placement 09/10/22. ? We will discontinue IV fluids, renal function is down to 1.67 ? Continue with IV levaquin, urology recommendations ? Enterobacter is sensitive to Levaquin, would recommend 10 total days of treatment which would be 5 Levaquin doses ? He is medically stable for discharge pending primary evaluation, will sign off call with questions 2. Left kidney and bladder stones, in a patient with neurogenic bladder; intermittently self catheterizes ?Continue with Wang per primary 3. CKD stage 3b/IV ? Cr appears to be close to baseline 2-2.4 4. HTN ? Blood pressures are stable ? Continue with her home blood pressure medications DVT: SCDs Charges/Coding Visit Charges Inpatient E&M: 77909 Subs Hosp L2
--- NOTE | 2022-09-12 09:54 | PCM.DC.BLA ---
Discharge Summary Date of Admission: 09/10/22 Date of Discharge: 09/12/22 Summary: 61-year-old male was admitted for obstructing stone in the left kidney and he had Enterococcus infection he will go home today with ciprofloxacin to treat this infection he also has multiple bladder stones. We were not able to treat stones because of active infection this was explained to the patient clearly. Wang catheter will be removed he will resume self intermittent catheterization. [place] and [place] [id number] [place]. Told the patient if we can get authorization we could probably set him up for lasering of the stones and lasering of the kidney stone in the near future or he may have to find in network care back home at his home state. Physical Exam Const alert and oriented x3 General Appearance: cooperative HEENT normocephalic, head/scalp atraumatic, EAC's normal and TM's normal bilaterally Eyes PERRL and EOMs intact bilaterally Pupil: sluggish Neck no lymphadenopathy, supple and no JVD General: trachea midline Lymph Lymphatic: no lymphadenopathy noted, lymphedema and lymphadenopathy Resp normal respiratory effort, normal air movement and clear to auscultation bilaterally Cardio regular rate, regular rhythm and peripheral pulses 2+ throughout GI soft to palpation, non-tender and non-distended Extremity normal capillary refill and no clubbing, cyanosis or edema General Extremity: no tenderness to palpation of joints or extremities Skin no rashes or lesions noted General Skin Exam: turgor normal Lesions: no lesions Rashes: no rashes Neuro CN's II-XII intact bilaterally Speech: speech normal Motor Exam: strength 5/5 throughout; Negative for general weakness Psych thought process normal, cooperative and affect normal Appearance: appropriate Meaningful Use Info Meaningful Use Diagnoses (Choose all that apply): None applicable Discharge Plan Admission Admit Date/Time: 09/09/22 22:28 Primary Reason for Your Visit: kidney stone Attending Provider: Fede Delgado Primary Care Provider: Care Physician,No Primary Consulting Providers: Carlie Judd ; Isabella Davison ; Isabella Wallis ; Yan Murcia Discharge Orders/Prescriptions Prescriptions: New ciprofloxacin HCl [Cipro] 500 mg tablet 500 mg PO BID Qty: 14 0RF ibuprofen 800 mg tablet 800 mg PO Q8H PRN (Reason: pain) Qty: 20 0RF No Action metoprolol succinate 100 MG tablet extended release 24 hr 100 mg PO DAILY rosuvastatin 10 MG tablet 10 mg PO QHS famotidine 40 mg tablet 40 mg PO DAILY Label Comments: TAKE 1 tablet every DAY by oral route as needed. losartan 25 mg tablet 25 mg PO DAILY Label Comments: Take 1 tablet every day by oral route. Referrals / Follow Up: Fede Delgado MD [Med Staff - Active Staff] - Care Physician,No Primary [Primary Care Provider] - Disposition Discharge Orders: Discharge Patient (Routine); Ordered 09/12/22 Ordered By: Dr. Fede Delgado
[2022-09-12 10:14] VITALS: BP 129/86; PULSE 62; RESP 18; TEMP 36.8; O2SAT 96
== END 2022-09-12 11:40 | disposition home or self-care (01) | DRG 661 ==
LOC: ED 16:49 → PCU 20:32
PROVIDERS: Family Medicine; Internal Medicine; Admitting Provider Urology; Emergency Provider Student in an Organized Health Care Education/Training Program; Visit Provider Urology
PROC: 0TJ98ZZ Inspection of Ureter, Via Natural or Artificial Opening Endoscopic (ICD-10-PCS; CPT 52352; principal; 2022-09-10 15:50)
DX: N13.6 Pyonephrosis (principal); B95.2 Enterococcus as the cause of diseases classified elsewhere; N18.32 Chronic kidney disease, stage 3b; I12.9 Hypertensive chronic kidney disease with stage 1 through stage 4 chronic kidney disease, or unspecified chronic kidney disease; N31.9 Neuromuscular dysfunction of bladder, unspecified; N21.0 Calculus in bladder; Z79.899 Other long term (current) drug therapy; Z87.442 Personal history of urinary calculi
CPT/HCPCS: 36415; 74176; 76000; 80048; 80053; 81001; 85025; 85027; 87077; 87086; 87088; 87186; 93005; 99283; J7030; J7050; J7120; A4216; C1769; C2617; J2405